=== PATIENT | female | born 1955 | race Caucasian/White ===

== ENCOUNTER 2024-04-23 10:12 | Inpatient (IN) | payer OTHER, SELFPAY ==
[2024-04-16 08:58] LABS: Hematocrit 40.1 % (37.0-47.0); Hemoglobin 13.6 g/dL (12.0-16.0); Mean Corp Hgb Conc. 33.9 g/dL (33.0-37.0); Mean Corpuscular Hgb 30.8 pg (27.0-31.0); Mean Corpuscular Volume 90.9 fL (81.0-99.0); Mean Platelet Volume 11.9 fL (7.4-10.4); Platelet Count 295 10^3/uL (130-400); Red Blood Cell Count 4.41 10^6/uL (4.20-5.40); Red Cell Dist. Width 14.2 % (11.5-14.5); White Blood Cell Count 11.4 10^3/uL (4.8-10.8)
[2024-04-16 09:02] LABS: INR 1.14; PT 14.5 Sec (11.4-14.6)
[2024-04-16 09:03] LABS: APTT 36.9 Sec (23.4-35.0)
[2024-04-16 09:45] LABS: Glycohemoglobin (HgbA1c) 8.4 % (4.0-5.6)
[2024-04-16 10:33] VITALS: BMI 39.6
[2024-04-16 11:52] LABS: ALT (SGPT) 11 U/L (0-35); AST (SGOT) 22 U/L (14-36); Albumin 4.2 g/dl (3.5-5.0); Alkaline Phosphatase 86 U/L (38-126); Blood Urea Nitrogen 26 mg/dl (7-17); Calcium 9.8 mg/dl (8.4-10.2); Carbon Dioxide 26 mmol/L (22-30); Chloride 102 mmol/L (98-107); Estimated Creatinine Clearance 62 ml/min; Glucose 100 mg/dl (70-99); Sodium 140 mmol/L (135-145); Total Bilirubin 0.6 mg/dl (0.2-1.3); Total Protein 7.4 g/dl (6.3-8.2); eGFR > 60.00
--- NOTE | 2024-04-19 14:10 | PTCARENOTE ---
Hgb A1c 8.4 collected on 04/16/24; Yue at 's office was notified.
[2024-04-23] VITALS (11 sets, daily range): BP systolic 125–151; BP diastolic 57–72; BMI 39.6
[2024-04-23 10:37] LABS: Glucose - Point of Care 136 mg/dl (70-99)
[2024-04-23] MEDS: NORMOSOL-R 1000 IV ×2 (10:39→16:37)
[2024-04-23] MEDS: ENTEREG 12 MG PO (10:47)
[2024-04-23] MEDS: TYLENOL 1000 MG PO (10:47)
[2024-04-23] MEDS: HEPARIN 5000 UNITS SC (10:48)
--- NOTE | 2024-04-23 16:09 | W.IMMPOSTOP ---
Surgical Immed Post Op Note
-
Primary Surgeon: Catracho Dorsey MD
Assistants: AREN Rosales & TAMERA Kapoor
Pre-op Diagnosis: Descending/Sigmoid colon carcinoma
Post-op Diagnosis: Same
Procedure Performed: Robotic splenic flexure resection with intracorporeal anastomosis
Anesthesia Type: GET
Specimen / Cultures: Splenic flexure/left colon (suture is distal)
Estimated Blood Loss: 25cc
Complications: None
Operative Findings: Ink at the descending colon/sigmoid colon junction
No evidence of metastatic disease
Patient's brother updated.
Colon Resection
Colon Resection
Operation performed with curative intent: Yes
Tumor Location: Descending Colon
Splenic Flexure Resection: Middle and ascending left colic
Left Hemicolectomy: Inferior Mesenteric
[2024-04-23 16:29] LABS: Glucose - Point of Care 221 mg/dl (70-99)
--- NOTE | 2024-04-23 16:50 | CON.HOSP ---
Addendum entered and electronically signed by Robin Salazar MD 04/23/24 17:26:
I saw and examined the patient.
The MASTER [employer]IP's note was reviewed and I agree with the note.
Comment:
68-year-old female past medical history of recently diagnosed colonic cancer, primary hypertension, diabetes insulin-dependent, mood disorder, atrial fibrillation, chronic coagulopathy with Eliquis who presented for elective resection. Underwent to
the OR for robotic splenic flexure resection with intracorporeal anastomosis. Postop patient was seen in PACU. We were consulted for medical management.
Seen in PACU sleepy but wakes up and answers few questions. Denies severe pain states of intermittent abdominal soreness.
General: Well Developed, Well Nourished and morbidly obese, sleepy
HEENT: Normocephalic, Moist Mucous Membranes and Atraumatic
Respiratory: Clear anterior, facemask,
Cardiac: S1/S2 and Regular Rhythm; Negative Murmur or Rub
GI: Soft, TTP,
Rectal: Deferred by Provider
Musculoskeletal: No Clubbing, No Cyanosis and No Edema
Skin: Rash and Other (lap sites)
Neuro: Nonfocal/Grossly Intact
Impression
Colonic cancer status post resection
Primary hypertension
Insulin-dependent diabetes mellitus
Atrial fibrillation unknown chronicity
Hypothyroidism
Mood disorder
Plan
NPO. Diet per surgery
Pain control antinausea meds
Monitor on telemetry as with A-fib
Hold Eliquis and restart pending surgery clearance
okay for po meds per surgery.
History of diabetes insulin-dependent however NPO. Continue insulin sliding scale for now. Will restart insulin slowly.
Hold p.o. HCTZ and check labs for the morning.
DVT prophylaxis SCDs and can start chemical pending surgery clearance
d/w with primary team
I spent a total of 78 minutes with the patient or on the floor. More than 50% of this time involved counseling and coordination of care.
Original Note:
Family Physician
-
Family Physician: nAne Llanos
Chief Complaint
-
medical consultation
History of Present Illness
68-year-old with past medical history for left shoulder melanoma, stroke, A-fib, type 2 diabetes, recently diagnosed with sigmoid colon cancer underwent Robotic splenic flexure resection with intracorporeal anastomosis consulted to us for medical
management. Upon reassessment patient is resting comfortably, sleepy but arousable. denied headache, dizziness, syncopal episode. Patient denies fever, chills, chest pain, short of breath. No nausea vomiting diarrhea. Patient denies dysuria
materia. patient has Chirinos cath in place.
Medical History
Past Medical History
Past Medical History: Reports Other
Additional Past Medical History:
Left shoulder melanoma
CVA
A-fib
Type 2 diabetes
Past Surgical History: Reports Other
Additional Past Surgical History:
Cholecystectomy
Postpr
Cholecystectomy
Postprocedure
Loop record
Social History
Tobacco: Non-smoker
Alcohol: None
Drug: None
Family History
Family History: Reviewed & Not Pertinent
Allergies / Home Medications
Allergies reflects when Allergies were last updated in [employer].
Home Medications with original date entered in [employer]
Allergy/Medication List:
Allergies
Allergy/AdvReac Type Severity Reaction Status Date / Time
No Known Allergies Allergy Verified 04/23/24 10:12
Home Medications
apixaban 5 mg tablet (Eliquis) 5 mg PO BID 04/16/24
citalopram 10 mg tablet 10 mg PO DAILY 04/16/24
dulaglutide 0.75 mg/0.5 mL subcutaneous pen injector (Trulicity) 0.75 mg SC QWEEK 04/16/24
evolocumab 140 mg/mL subcutaneous syringe (Repatha Syringe) 140 mg SC Q2W 04/16/24
ezetimibe 10 mg tablet (Zetia) 10 mg PO DAILY 04/16/24
insulin aspart U-100 100 unit/mL subcutaneous solution (Novolog U-100 Insulin aspart) 1 sliding scale dose SC DIRECTED 04/16/24
insulin aspart U-100 100 unit/mL subcutaneous solution (Novolog U-100 Insulin aspart) 18 unit SC HS 04/16/24
insulin glargine 100 unit/mL (3 mL) subcutaneous pen (Lantus Solostar U-100 Insulin) 38 unit SC HS 04/16/24
levothyroxine 25 mcg tablet 25 mcg PO DAILY 04/16/24
lisinopril 20 mg-hydrochlorothiazide 25 mg tablet 1 tab PO DAILY 04/16/24
metoprolol tartrate 25 mg tablet 25 mg PO BID 04/16/24
sodium sul 1.479 gram-potas ch 0.188 gram-magnes sul 0.225 gram tablet (Sutab) 0 tab PO PER PKG DIR 04/16/24
Review of Systems
-
Constitutional: Reports No Symptoms
EENT: Reports No Symptoms
Respiratory: Reports No Symptoms
Cardiac: Reports No Symptoms
Abdomen/GI: Reports No Symptoms
: Reports No Symptoms
Musculoskeletal: Reports No Symptoms
Skin: Reports No Symptoms
Neurological: Reports No Symptoms
Endocrine: Reports No Symptoms
Hematologic/Lymphatic: Reports No Symptoms
Psych: Reports No Symptoms
Physical Exam
Vital Signs
Vital Signs
Temp Pulse Resp BP Pulse Ox
96.6 F L 53 18 135/64 97
04/23/24 16:30 04/23/24 10:19 04/23/24 10:19 04/23/24 10:19 04/23/24 10:19
Physical Exam
General: Well Developed, Well Nourished and No Apparent Distress
HEENT: Normocephalic, Moist Mucous Membranes and Atraumatic
Respiratory: Clear
Cardiac: S1/S2 and Regular Rhythm; Negative Murmur or Rub
GI: Soft, Non Tender, Non Distended and Normal Bowel Sounds
Rectal: Deferred by Provider
Musculoskeletal: No Clubbing, No Cyanosis and No Edema
Skin: Rash and Other (lap sites)
Neuro: Nonfocal/Grossly Intact
Laboratory Results
-
Laboratory Results
04/16/24 08:24
04/16/24 08:24
PT 14.5 Sec (11.4-14.6) 04/16/24 08:24
INR 1.14 04/16/24 08:24
APTT 36.9 Sec (23.4-35.0) H 04/16/24 08:24
Total Bilirubin 0.6 mg/dl (0.2-1.3) 04/16/24 08:24
AST 22 U/L (14-36) 04/16/24 08:24
ALT 11 U/L (0-35) 04/16/24 08:24
Alkaline Phosphatase 86 U/L (38-126) 04/16/24 08:24
Impression / Plan
-
# Sigmoid colon carcinoma.
-Status post robotic splenic flexure resection
-Colorectal following the patient
# History of A-fib
-Obtain EKG
-Hold Eliquis, resume once cleared by surgery
-Metoprolol continued
# Depression/anxiety
-Citalopram continued
#hyperlipidemia
-Zetia continued
# Type 2 diabetes
-Sliding scale
-hold NovoLog and Lantus
# Hypothyroidism
-Levothyroxine
# Essential hypertension
-HCTZ held
-lisinopril continued with hold parameter
# DVT prophylaxis
-SCD
--- NOTE | 2024-04-23 17:17 | SUR.PHASEI ---
Blood sugar 221 Dr Rubio informed. No coverage ordererd Heidy black RN BSN.
--- NOTE | 2024-04-23 17:26 | W.PN.UPDATE ---
Update Note
Progress Note Update
For billing purposes only
[2024-04-23 17:48] LABS: Glucose - Point of Care 273 mg/dl (70-99)
--- NOTE | 2024-04-23 17:50 | PTCARENOTE ---
Pt received from the PACU via bed. Transport was w/o incident. Pt is Awake, although still drowsy post operatively. Pulse ox is 96% on 2L via nc. VSS, Pt is afebrile. Pt denies pain or nausea at this time. Pt's abd with 4 lap sites and one lower abd
transverse inc. all well approximated w/ surgical glue, no drainage noted. Chirinos Cath draining clear yellow urine. Pt instructed on plan of care Pt verbalized understanding of instructions. Call [facility] is within reach.
[2024-04-23] MEDS: NOVOLOG FLEXPEN-LOW RESISTANCE 3 UNITS SC (18:25)
[2024-04-23] MEDS: LOPRESSOR 25 MG PO (21:40)
[2024-04-23] MEDS: TYLENOL 650 MG PO (21:41)
[2024-04-24] VITALS (7 sets, daily range): BP systolic 107–137; BP diastolic 44–64; PULSE 47; BMI 40.8
[2024-04-24 00:16] LABS: Glucose - Point of Care 303 mg/dl (70-99)
[2024-04-24] MEDS: NOVOLOG FLEXPEN-LOW RESISTANCE 4 UNITS SC (00:20)
[2024-04-24] MEDS: TYLENOL PO ×2 (00:26→23:12)
[2024-04-24] MEDS: NORMOSOL-R 1000 IV ×3 (01:22→20:07)
[2024-04-24] MEDS: TYLENOL 650 MG PO ×5 (03:26→19:50)
[2024-04-24 06:16] LABS: Glucose - Point of Care 276 mg/dl (70-99)
[2024-04-24] MEDS: SYNTHROID 25 MCG PO (06:18)
[2024-04-24] MEDS: NOVOLOG FLEXPEN-LOW RESISTANCE 3 UNITS SC (06:19)
[2024-04-24 07:06] LABS: % Basophils 0.2 % (0-2); % Immature Granulocytes 0.5 % (0-0.5); % Lymphocytes 5.4 % (20.5-51.1); % Monocytes 7.8 % (1.7-9.3); % Neutrophils 86.1 % (42.2-75.2); Absolute Immature Granulocytes 0.1 10^3/uL (0-0.05); Absolute Monocytes 1.5 10^3/uL (0.1-0.6); Absolute Neutrophils 16.2 10^3/uL (1.4-6.5); Hematocrit 34.3 % (37.0-47.0); Hemoglobin 11.9 g/dL (12.0-16.0); Mean Corp Hgb Conc. 34.7 g/dL (33.0-37.0); Mean Corpuscular Hgb 30.8 pg (27.0-31.0); Mean Corpuscular Volume 88.9 fL (81.0-99.0); Mean Platelet Volume 11.6 fL (7.4-10.4); Nucleated Red Blood Cells % 0 %; Platelet Count 251 10^3/uL (130-400); Red Blood Cell Count 3.86 10^6/uL (4.20-5.40); Red Cell Dist. Width 14.1 % (11.5-14.5); White Blood Cell Count 18.8 10^3/uL (4.8-10.8)
[2024-04-24 07:17] LABS: Blood Urea Nitrogen 16 mg/dl (7-17); Calcium 8.3 mg/dl (8.4-10.2); Carbon Dioxide 25 mmol/L (22-30); Chloride 100 mmol/L (98-107); Estimated Creatinine Clearance 78 ml/min; Glucose 294 mg/dl (70-99); Potassium 4.6 mmol/L (3.5-5.1); Sodium 131 mmol/L (135-145); eGFR > 60.00
[2024-04-24] MEDS: ENTEREG 12 MG PO ×2 (08:28→19:51)
[2024-04-24] MEDS: CELEXA 10 MG PO (08:28)
[2024-04-24] MEDS: ZESTRIL 20 MG PO (08:28)
[2024-04-24] MEDS: DESENEX/MITRAZOL/ZEASORB 1 APPLIC TOPICAL ×2 (08:29→19:51)
[2024-04-24] MEDS: ZETIA 10 MG PO (08:29)
[2024-04-24] MEDS: LOPRESSOR 25 MG PO ×2 (08:29→19:50)
--- NOTE | 2024-04-24 10:04 | CM ---
CM met with pt at bedside.
Pt resides in a 3[place] with her 3 brothers one of which is a retired RN who is very involved.
Plan at [facility] is [facility] set up. Bed and bathroom on 1st floor.
Pt uses a quad cane and a WC for distances. Able to self-propel.
PCP is Anne Llanos.
Pharmacy is [facility].
Has home care history years ago. No SNF history.
Pt reports being not interested in VN at [facility]. Has support at home. Will ask for CM if changes mind.
Discharge dispo is home no needs. Family to transport.
--- NOTE | 2024-04-24 10:52 | W.PN.HOSP.TC ---
Today's Communication/Plan
-
Start Lantus
Moderate sliding scale
Hold HCTZ
Trend CBC
Started on clear liquid
Assessment / Plan
Assessment / Plan
# Sigmoid colon carcinoma.
#Leukocytosis likely secondary to postop reactive/stress
-Status post robotic splenic flexure resection
-Pain control. Antinausea meds.
-Chirinos removed postop day 2 per surgery
-Remains afebrile. Monitor WBC and temperature curve.
-Patient is started on clear liquid diet
# History of A-fib unknown chronicity
-Monitor on telemetry
-Hold Eliquis, resume once cleared by surgery
-Metoprolol continued
# Depression/anxiety
-Citalopram continued
#hyperlipidemia
-Zetia continued
# Insulin-dependent diabetes mellitus
-Sliding scale moderate
-Restart Lantus at 15 units. Restart Premeal insulin once appetite improves
-A1c 8.4.
# Hypothyroidism
-Levothyroxine
# Essential hypertension
-HCTZ held
-lisinopril continued with hold parameter
# Mild hyponatremia
-Likely in the setting of dehydration and HCTZ. Hold HCTZ for today
# DVT prophylaxis
-SCD
Anticipated Discharge: > 48 hours
Subjective/Interval History
-
Date of Service: April 24, 2024
States of mild abdominal soreness
Objective Data
-
Labs:
Laboratory Results
04/24/24
06:42
WBC 18.8 H
Hgb 11.9 L
Hct 34.3 L
Plt Count 251
Sodium 131 L
Potassium 4.6
Chloride 100
Carbon Dioxide 25
BUN 16
Creatinine 0.8
Glucose 294 H
Calcium 8.3 L
Vital Signs:
Vital Signs
Temp Pulse Resp BP Pulse Ox
99.0 F 54 17 126/62 97
04/24/24 07:47 04/24/24 08:29 04/24/24 07:47 04/24/24 08:29 04/24/24 07:47
I&O
04/23/24 04/24/24 04/25/24
06:59 06:59 06:59
Intake Total 1445 / 1445
Output Total 775 / 775
Balance 670 / 670
Physical Exam
-
General: Well Developed, No Apparent Distress and Morbidly Obese
HEENT: Normocephalic, Atraumatic and Moist Mucous Membranes
Respiratory: Clear to Auscultation
Cardiac: Regular Rhythm and S1/S2; Negative Murmur, Rub or Gallop
GI: Soft, Nondistended and Normal Bowel Sounds; Negative Organomegaly
Rectal: Deferred by Provider
Genito-urinary: Chirinos
Musculoskeletal: No Clubbing, No Cyanosis and No Edema
Skin: Negative Rash
Neuro: Awake, AO x 3, No Motor Deficits and Nonfocal/Grossly Intact
Psych: Calm
Data Reviewed
-
Total Time Spent with Patient (in minutes): 56
[2024-04-24 10:59] LABS: Glucose - Point of Care 266 mg/dl (70-99)
[2024-04-24] MEDS: NOVOLOG FLEXPEN-MODERATE RESISTANCE 5 UNITS SC (10:59)
--- NOTE | 2024-04-24 12:02 | W.PN.CRS1 ---
Today's Communication / Plan
-
Trial of clears then advance to FLD
Assessment/Plan
-
68 yo female with carcinoma of the descending/sigmoid colon now POD #1 Robotic splenic flexure resection with intracorporeal anastomosis.
Doing well post operatively, following expected course
AFVSS
Mild acute anemia secondary to hemodilution and expected operative losses, no active bleeding noted
Reactive leukocytosis post op
--Start clear liquids and advance to FLD for dinner if tolerating
--Chirinos in place, VT in AM
--OOB/Ambulate. PT eval
--Trend labs
--Multimodal analgesics
--Appreciate medicine team following with us
--Lovenox and SCDs for VTE ppx
Subjective Data
Procedure
04/23/24 Robotic splenic flexure resection with intracorporeal anastomosis.
Subjective Data
Date of Service: April 24, 2024
Patient seen and examined at bedside with Dr. Dorsey. Denies n/v. Passing some flatus. Pain is minimal.
Objective Data
-
Vital Signs
Temp Pulse Resp BP Pulse Ox
99.0 F 54 17 126/62 97
04/24/24 07:47 04/24/24 08:29 04/24/24 07:47 04/24/24 08:29 04/24/24 07:47
Intake & Output
04/23/24 04/24/24 04/25/24
06:59 06:59 06:59
Intake Total 1445 / 1445
Output Total 775 / 775
Balance 670 / 670
Intake:
Oral fluids 120 / 120
IV fluids (Total) 1325 / 1325
Normosol-R 1,000 ml @ 100 mls/ 75 / 75
hr IV .Q10H [facility] Rx#:[id number]
norm 50 / 50
Output:
Urine, Chirinos 775 / 775
Lab Results
04/24/24 06:42
04/24/24 06:42
Physical Exam
-
General: No Acute Distress
Abdomen: Soft, Non Distended and Tender (mild to incisions)
Wound: Dressing in Place (dermabond)
Incision: Clear, Dry, Intact
[2024-04-24 16:44] LABS: Glucose - Point of Care 196 mg/dl (70-99)
[2024-04-24] MEDS: LOVENOX 40 MG SC (16:50)
[2024-04-24] MEDS: NOVOLOG FLEXPEN-MODERATE RESISTANCE 1 UNITS SC (16:50)
[2024-04-24 19:47] LABS: Hepatitis C Antibody Negative (Negative)
[2024-04-24 21:44] LABS: Glucose - Point of Care 331 mg/dl (70-99)
[2024-04-24] MEDS: LANTUS 0.15 UNITS SC (22:10)
[2024-04-25 04:53] VITALS: BP 125/54
[2024-04-25 06:00] VITALS: BMI 40.7
[2024-04-25] MEDS: TYLENOL 650 MG PO ×4 (06:03→16:11)
[2024-04-25] MEDS: NORMOSOL-R 1000 IV (06:03)
[2024-04-25] MEDS: SYNTHROID 25 MCG PO (06:05)
[2024-04-25 07:26] VITALS: BP 127/57
[2024-04-25 07:26] LABS: Glucose - Point of Care 202 mg/dl (70-99)
[2024-04-25] MEDS: NOVOLOG FLEXPEN-MODERATE RESISTANCE 3 UNITS SC (08:19)
[2024-04-25 08:25] LABS: Blood Urea Nitrogen 16 mg/dl (7-17); Calcium 8.5 mg/dl (8.4-10.2); Carbon Dioxide 28 mmol/L (22-30); Chloride 99 mmol/L (98-107); Estimated Creatinine Clearance 70 ml/min; Glucose 202 mg/dl (70-99); Potassium 4.1 mmol/L (3.5-5.1); Sodium 136 mmol/L (135-145); eGFR > 60.00
[2024-04-25] MEDS: CELEXA 10 MG PO (08:44)
[2024-04-25] MEDS: ZETIA 10 MG PO (08:44)
[2024-04-25] MEDS: ENTEREG 12 MG PO (08:44)
[2024-04-25] MEDS: LOPRESSOR 25 MG PO (08:44)
[2024-04-25] MEDS: ZESTRIL 20 MG PO (08:45)
[2024-04-25] MEDS: DESENEX/MITRAZOL/ZEASORB 1 APPLIC TOPICAL (08:48)
[2024-04-25 09:34] LABS: Hematocrit 32.8 % (37.0-47.0); Hemoglobin 11.2 g/dL (12.0-16.0); Mean Corp Hgb Conc. 34.1 g/dL (33.0-37.0); Mean Corpuscular Hgb 31.8 pg (27.0-31.0); Mean Corpuscular Volume 93.2 fL (81.0-99.0); Mean Platelet Volume 12.2 fL (7.4-10.4); Platelet Count 214 10^3/uL (130-400); Red Blood Cell Count 3.52 10^6/uL (4.20-5.40); Red Cell Dist. Width 14.5 % (11.5-14.5); White Blood Cell Count 13.9 10^3/uL (4.8-10.8)
[2024-04-25 11:07] VITALS: BP 131/54
--- NOTE | 2024-04-25 12:01 | W.PN.HOSP.TC ---
Today's Communication/Plan
-
LR diet
restart lantus
bb hold parameters added
hctz in am
Assessment / Plan
Assessment / Plan
# Sigmoid colon carcinoma.
#Leukocytosis likely secondary to postop reactive/stress-improving.
-Status post robotic splenic flexure resection
-Pain control. Antinausea meds.
-Chirinos removed postop day 2 per surgery
-Remains afebrile. Monitor WBC and temperature curve.
-Diet advanced to Low residue
# History of A-fib unknown chronicity
-Monitor on telemetry
-Eliquis restarted
-Metoprolol continued
-mild bradycardia with rest on telemetry. Asymptomatic. No pauses noted. Hold parameters for metoprolol added.
-Heart rate was 76 with exertion while working with physical therapy.
# Depression/anxiety
-Citalopram continued
#hyperlipidemia
-Zetia continued
# Insulin-dependent diabetes mellitus
-Sliding scale moderate
-Restart Lantus home dose 38u.
-A1c 8.4.
# Hypothyroidism
-Levothyroxine
# Essential hypertension
-HCTZ restart
-lisinopril continued with hold parameter
# Mild hyponatremia
-Likely in the setting of dehydration and HCTZ. '
-Na stabilized at 136. Restart HCTZ.
# DVT prophylaxis-Eliquis
Anticipated Discharge: Within 24 hours
Subjective/Interval History
-
Date of Service: April 25, 2024
States of abd soreness
Eduardo on tele
states HR improves with exertion
having BM
Objective Data
-
Labs:
Laboratory Results
04/25/24 04/25/24
06:26 08:45
WBC 13.9 H
Hgb 11.2 L
Hct 32.8 L
Plt Count 214
Sodium 136
Potassium 4.1
Chloride 99
Carbon Dioxide 28
BUN 16
Creatinine 0.9
Glucose 202 H
Calcium 8.5
Vital Signs:
Vital Signs
Temp Pulse Resp BP Pulse Ox
98.4 F 47 15 131/54 97
04/25/24 11:07 04/25/24 11:07 04/25/24 11:07 04/25/24 11:07 04/25/24 11:07
I&O
04/24/24 04/25/24 04/26/24
06:59 06:59 06:59
Intake Total 1445 / 1445 3090 / 3090 2160 / 2160
Output Total 775 / 775 1150 / 1150 1100 / 1100
Balance 670 / 670 1940 / 1940 1060 / 1060
Physical Exam
-
General: Well Developed, No Apparent Distress and Morbidly Obese
HEENT: Normocephalic, Atraumatic and Moist Mucous Membranes
Respiratory: Clear to Auscultation
Cardiac: Regular Rhythm, S1/S2 and Bradycardic; Negative Murmur, Rub or Gallop
GI: Soft, Nondistended and Normal Bowel Sounds; Negative Organomegaly
Rectal: Deferred by Provider
Genito-urinary: Chirinos
Musculoskeletal: No Clubbing, No Cyanosis and No Edema
Skin: Negative Rash
Neuro: Awake, AO x 3, No Motor Deficits and Nonfocal/Grossly Intact
Psych: Calm
Data Reviewed
-
Total Time Spent with Patient (in minutes): 56
[2024-04-25 12:16] LABS: Glucose - Point of Care 190 mg/dl (70-99)
[2024-04-25] MEDS: NOVOLOG FLEXPEN-MODERATE RESISTANCE 1 UNITS SC (12:29)
--- NOTE | 2024-04-25 12:31 | W.PN.CRS1 ---
Today's Communication / Plan
-
LRD
Assessment/Plan
-
68 yo female with carcinoma of the descending/sigmoid colon now POD #2 Robotic splenic flexure resection with intracorporeal anastomosis.
Doing well post operatively, following expected course
AFVSS
H/h stable
Reactive leukocytosis post op, improved
--LRD today
--OOB/Ambulate. PT eval appreciated
--Resume home dose of Eliquis tonight
--Multimodal analgesics
--Appreciate medicine team following with us
--Lovenox and SCDs for VTE ppx
D/C later today vs most likely tomorrow pending patient course
Subjective Data
Procedure
04/23/24 Robotic splenic flexure resection with intracorporeal anastomosis.
Subjective Data
Date of Service: April 25, 2024
Patient seen and evaluated at bedside with Dr. Dorsey. Denies N/V. Passing flatus/bms. Minimal discomfort. voiding well since luther out
Objective Data
-
Vital Signs
Temp Pulse Resp BP Pulse Ox
98.4 F 47 15 131/54 97
04/25/24 11:07 04/25/24 11:07 04/25/24 11:07 04/25/24 11:07 04/25/24 11:07
Intake & Output
04/24/24 04/25/24 04/26/24
06:59 06:59 06:59
Intake Total 1445 / 1445 3090 / 3090 2160 / 2160
Output Total 775 / 775 1150 / 1150 1100 / 1100
Balance 670 / 670 1940 / 1940 1060 / 1060
Intake:
Oral fluids 120 / 120 1840 / 1840 960 / 960
IV fluids (Total) 1325 / 1325 1250 / 1250 1200 / 1200
Normosol-R 1,000 ml @ 100 mls/ 75 / 75
hr IV .Q10H [facility] Rx#:[id number]
norm 50 / 50
Output:
Urine, Luther 775 / 775 450 / 450
Urine, Voided 700 / 700 1100 / 1100
Lab Results
04/25/24 08:45
04/25/24 06:26
Physical Exam
-
General: No Acute Distress
Abdomen: Soft, Non Distended and Tender (mild to incisions)
Wound: Dressing in Place (dermabond)
Incision: Clear, Dry, Intact
[2024-04-25 15:22] VITALS: BP 125/48
[2024-04-25 16:22] LABS: Glucose - Point of Care 253 mg/dl (70-99)
[2024-04-25] MEDS: NOVOLOG FLEXPEN-MODERATE RESISTANCE 5 UNITS SC (16:31)
--- NOTE | 2024-04-25 16:50 | W.DCSUMMARY ---
Discharge Summary
Discharge Data
Date of Admission: 04/23/24
Date of Discharge: 04/25/24
-
Pending Results: No
Hospital Course
68 yo female with a history of carcinoma of the descending/sigmoid colon who presented for operative management with robotic splenic flexure resection with intracorporeal anastomosis. She tolerated the procedure well without complication. She was
followed post operatively by the hospitalist service for medical/diabetic management. She was able to void well after luther catheter removed. Diet was advanced and well tolerated with signs of good bowel recovery post operatively. Home dosage of
Eliquis was resumed 48hours post operatively upon discharge.
Discharge Plan
-
Patient Disposition: Home (Routine Discharge)
Discharge Diagnosis/Procedures: Robotic splenic flexure resection
Condition: Good
Diet: Low Fiber
Activity: No strenuous activity
Additional Activity: Do not lift more than 10lbs (gallon of milk)
Driving Restrictions: wait until after narcotics
Bathing Restrictions: OK to Shower
Wound Care: Ok to shower and wash incisions gently with soap and water. Allow the glue to flake off on its own.
Activity Restrictions/Additional Instructions:
Call your surgeon if you have a fever >100.5, nausea with vomiting, or worsening abdominal pain
Instructions: Low Fiber Diet
Referrals:
Richi Dorsey MD [Active] - in two to three weeks
Anne Llanos DO [Family Provider] -
Prescriptions:
New
oxycodone 5 mg tablet
5 mg PO Q4HPRN PRN (Reason: breakthrough/severe pain) Qty: 15 0RF
acetaminophen [acetaminophen] 325 mg tablet
650 mg PO Q4HPRN PRN (Reason: mild pain) Qty: 1 0RF
Continued
citalopram 10 mg Tablet
10 mg PO DAILY
levothyroxine 25 mcg Tablet
25 mcg PO DAILY
insulin aspart U-100 [Novolog U-100 Insulin aspart] 100 unit/mL Solution
1 sliding scale dose SC DIRECTED
insulin aspart U-100 [Novolog U-100 Insulin aspart] 100 unit/mL Solution
18 unit SC HS
Patient Comments:
pt took 10 Units
lisinopril-hydrochlorothiazide 20-25 mg Tablet
1 tab PO DAILY
ezetimibe [Zetia] 10 mg Tablet
10 mg PO DAILY
metoprolol tartrate 25 mg Tablet
25 mg PO BID
insulin glargine [Lantus Solostar U-100 Insulin] 100 unit/mL (3 mL) Insulin Pen
38 unit SC HS
Patient Comments:
pt took 30 Units
Eliquis 5 mg Tablet
5 mg PO BID
Trulicity 0.75 mg/0.5 mL Pen Injector
0.75 mg SC QWEEK
Repatha Syringe 140 mg/mL Syringe
140 mg SC Q2W
Sutab 1.479-0.188- 0.225 gram Tablet
0 tab PO PER PKG DIR
Discharge Orders:
Discharge Patient (As Directed); Ordered 04/25/24
Ordered By: Autumn Suarez
Discharge Date and Time
Print Language: BRAZILIAN
--- NOTE | 2024-04-25 17:25 | PTCARENOTE ---
Addendum entered by Macy Whaley RN 04/25/24 17:38:
At 17:35 patient's brother arrived to room, patient wheelchair at baseline, patient requested her brother push her in wheelchair to his car; approved by Charge Nurse.
Original Note:
Discharge instructions reviewed with patient, acknowledged understanding; patient belongings included own wheelchair and quad cane; awaiting brother's arrival.
== END 2024-04-25 17:43 | disposition home or self-care (01) | DRG 330 ==
LOC: 2 SOUTH 10:12
PROVIDERS: Registered Nurse; ADMITTING PHYSICIAN Surgery; CONSULT PHYSICIAN Hospitalist; FAMILY PHYSICIAN Family Medicine
PROC: 8E0W4CZ Robotic Assisted Procedure of Trunk Region, Percutaneous Endoscopic Approach (ICD-10-PCS; 2024-04-23)
PROC: 0DBN4ZZ Excision of Sigmoid Colon, Percutaneous Endoscopic Approach (ICD-10-PCS; 2024-04-23)
DX: C18.7 Malignant neoplasm of sigmoid colon (principal); E87.1 Hypo-osmolality and hyponatremia; I48.20 Chronic atrial fibrillation, unspecified; Z68.41 Body mass index [BMI] 40.0-44.9, adult; E11.9 Type 2 diabetes mellitus without complications; E03.9 Hypothyroidism, unspecified; F39 Unspecified mood [affective] disorder; D72.829 Elevated white blood cell count, unspecified; F32.A Depression, unspecified; E86.0 Dehydration; F41.9 Anxiety disorder, unspecified; E78.5 Hyperlipidemia, unspecified; I10 Essential (primary) hypertension; E66.01 Morbid (severe) obesity due to excess calories; Z79.4 Long term (current) use of insulin; Z86.73 Personal history of transient ischemic attack (TIA), and cerebral infarction without residual deficits; Z85.820 Personal history of malignant melanoma of skin; Z79.01 Long term (current) use of anticoagulants; Z79.85 Long-term (current) use of injectable non-insulin antidiabetic drugs; Z79.890 Hormone replacement therapy
CPT/HCPCS: 88309; 36415; 80048; 80053; 82962; 83036; 85025; 85027; 85610; 85730; 86803; 86850; 86900; 86901; 97162; J1335

== ENCOUNTER → 2024-05-06 12:02 | Outpatient (REF) | payer SELFPAY | LOC: LAB 12:02 | PROVIDERS: ATTENDING PHYSICIAN Surgery; FAMILY PHYSICIAN Family Medicine | DX: C18.7 Malignant neoplasm of sigmoid colon (principal) | CPT/HCPCS: 88305 ==